=== PATIENT | female | born 1985 | race Caucasian/White ===

== ENCOUNTER 2017-03-09 14:18 | Emergency (ER) | payer OTHER | END 2017-03-09 15:46 | disposition left against medical advice (07) | LOC: UCCORT 14:18 | DX: R50.9 Fever, unspecified (principal); R05 Cough; J34.89 Other specified disorders of nose and nasal sinuses; Z53.21 Procedure and treatment not carried out due to patient leaving prior to being seen by health care provider ==

== ENCOUNTER 2017-03-09 18:54 | Emergency (ER) | payer OTHER ==
[2017-03-09 20:54] VITALS: BP 142/90
--- NOTE | 2017-03-09 21:14 | UC ---
Respiratory Complaint HPI - HPI Summary HPI Summary: The patient comes in today for: 1. Cough, ear popping, rhinitis, wheezing, fever: Onset: 4 days ago. Palliative/provocative: Nyquil and Dayquil helped. Quality: Raspy cough. Region: Head, lungs. Severity: 0/10 Time: Cough lasts few seconds. Associated symptoms: Cough: Barely productive--brown/green. Rhinitis: Clear/yellow. Sinus pressure/pain: present below her eyes. Temperatures: 101.2, 102.3 earlier today. Chest pain: None. Dyspnea/wheezing: Present Inhaler use: she has used this in the past, but she has not had to use one in the last year. * - History of Current Complaint Chief Complaint: UCGeneralIllness Stated Complaint: FEVER, COUGH, EAR PAIN, SORE THROAT Time Seen by Provider: 03/09/17 20:56 Hx Obtained From: Patient Hx Last Menstrual Period: 02/22/17 has had tubal - Allergies/Home Medications Allergies/Adverse Reactions: Allergies Allergy/AdvReac Type Severity Reaction Status Date / Time Latex Allergy Severe Rash Verified 03/09/17 20:54 Amoxicillin Allergy Intermediate Hives Verified 03/09/17 20:54 PMH/Surg Hx/FS Hx/Imm Hx Previously Healthy: Yes Endocrine History Of: Denies: Diabetes, Thyroid Disease, Hyperthyroidism, Hypothyroidism, Dyslipidemia Cardiovascular History Of: Denies: Cardiac Disorders, Hypertension, Pacemaker/ICD, Myocardial Infarction , Congestive Heart Failure, Atrial Fibrillation, Deep Vein Thrombosis, Bleeding Disorders Respiratory History Of: Reports: Asthma Denies: COPD, Bronchitis, Pneumonia, Pulmonary Embolism GI/ History Of: Denies: Gastroesophageal Reflux, Ulcer, Gastrointestinal Bleed, Gall Bladder Disease, Kidney Stones, Diverticulitis, Renal Disease, Urosepsis Neurological History Of: Denies: TIA, CVA, Dementia, Seizures, Migraine Psychological History Of: Reports: Anxiety - No Rx. Denies: Depression, Bipolar Disorder, Schizophrenia, Post Traumatic Stress Disorder Cancer History Of: Denies: Lung Cancer, Colorectal Cancer, Breast Cancer, Prostate Cancer, Cervical Cancer Other History Of: Negative For: HIV, Hepatitis B, Hepatitis C, Anticoagulant Therapy - Surgical History Surgical History: Yes Surgery Procedure, Year, and Place: 3 C-Sections - Family History Known Family History: Positive: Cardiac Disease, Hypertension - Social History Occupation: Employed Full-time Alcohol Use: None Substance Use Type: None Smoking Status (MU): Heavy Every Day Tobacco Smoker Type: Cigarettes Amount Used/How Often: 1 ppd - Immunization History Most Recent Influenza Vaccination: [id number] Review of Systems Constitutional: Fever Skin: Negative Eyes: Negative ENT: Negative, Nasal Discharge Respiratory: Cough Cardiovascular: Negative Gastrointestinal: Negative Genitourinary: Negative All Other Systems Reviewed And Are Negative: Yes Physical Exam Triage Information Reviewed: Yes Appearance: No Pain Distress, Well-Nourished, Ill-Appearing - Sluggish, with decreased animation--but otherwise normal Vital Signs: Initial Vital Signs Temp 99.5 F 03/09/17 20:50 Pulse 95 03/09/17 20:50 Resp 16 03/09/17 20:50 BP 142/90 03/09/17 20:50 Pulse Ox 99 03/09/17 20:50 Vital Signs Reviewed: Yes Eyes: Positive: Conjunctiva Clear. Negative: Discharge ENT: Positive: Hearing grossly normal. Negative: Pharyngeal erythema, Nasal congestion, Nasal drainage, TM bulging, TM dull, TM red, Tonsillar swelling, Tonsillar exudate Dental: Negative: Gross Decay/Caries @, Dental Fracture @ Neck: Positive: Supple, Nontender, No Lymphadenopathy. Negative: Nuchal Rigidity Respiratory: Positive: Chest non-tender, Lungs clear, No respiratory distress, No accessory muscle use, Rhonchi - scattered., Wheezing - Scattered. Cardiovascular: Positive: RRR, No Murmur Abdomen Description: Positive: Nontender, No Organomegaly, Soft. Negative: Distended, Guarding Musculoskeletal: Negative: Strength Intact, ROM Intact, No Edema Neurological: Positive: Alert Psychological: Positive: Age Appropriate Behavior, Consolable UC Diagnostic Evaluation - Laboratory O2 Sat by Pulse Oximetry: 99 Respiratory Course/Dx - Differential Dx/Diagnosis Differential Diagnosis/HQI/PQRI: Bronchitis, Laryngitis Provider Diagnoses: Bronchitis with bronchospasm. Sinusitis Discharge - Discharge Plan Condition: Stable Disposition: HOME Patient Education Materials: Acute Bronchitis (ED), Sinusitis (ED), Bronchospasm (ED) Referrals: Brii Waggoner MD [Primary Care Provider] - 1 Week (Please see your primary care provider in about one to two weeks to see how well you are doing. If you get worse, please be seen sooner.)
[2017-03-09] MEDS ORDERED: Albuterol HFA INHALER* 8 gm MDI INH ONE (21:36)
[2017-03-09] MEDS ORDERED: DOXYcycline CAP(*) 100 MG PO ONE (21:36)
== END 2017-03-09 21:47 | disposition home or self-care (01) ==
LOC: UCCORT 18:54
DX: J20.9 Acute bronchitis, unspecified (principal); J32.9 Chronic sinusitis, unspecified; Z88.1 Allergy status to other antibiotic agents; F41.9 Anxiety disorder, unspecified; F17.210 Nicotine dependence, cigarettes, uncomplicated
CPT/HCPCS: 99202; A9270-GY; G0463